=== PATIENT | female | born 1960 | race American Indian/Alaskan Native ===

== ENCOUNTER 2016-09-04 08:03 | Outpatient (CLI) | payer OTHER ==
[2016-09-04 08:50] LABS: Blood Urea Nitrogen 16 mg/dL (7-17)
[2016-09-04] MEDS ORDERED: NACL ONE (10:00)
--- NOTE | 2016-09-04 10:45 | Cat Scan Report ---
CT of the abdomen and pelvis with IV and oral contrast. History: Abdominal pain and distention. Findings: The liver, spleen, pancreas, and gallbladder are normal. The kidneys are normal in size and configuration with no evidence of mass or hydronephrosis. There are no pelvic masses or abnormal fluid collections. No mesenteric inflammation seen. There is no free air. The uterus and adnexa are unremarkable. There is no evidence of appendicitis. Impression: Normal study.
== END 2016-09-04 08:04 | disposition home or self-care (01) ==
LOC: CT 08:03
PROVIDERS: ATTEND Internal Medicine Gastroenterology
DX: R14.0 Abdominal distension (gaseous) (principal); R10.9 Unspecified abdominal pain
CPT/HCPCS: 36415; 74177; 82565; 84520; Q9967

== ENCOUNTER 2016-12-15 17:33 | Emergency (ER) | payer OTHER ==
[2016-12-15 17:42] VITALS: BP 111/74
[2016-12-15 18:18] LABS: Bacteria,Urine 1+ /HPF (Negative); Bilirubin,Urine NEG (Negative); Blood,Urine MOD (Negative); Ketones,Urine NEG (Negative); Leukocyte Esterase,Urine NEG (Negative); Mucus,Urine FEW /HPF; Nitrite,Urine NEG (Negative); Protein,Urine <15 mg/dL mg/dL (Negative); Urobilinogen,Urine < 2.0 mg/dL (<2.0)
--- NOTE | 2016-12-15 21:20 | Emergency Department Report ---
Entered by JAGDISH CASTELLANOS, acting as scribe for ARLEY RODRIGUEZ PA. ED General Adult HPI - General Chief complaint: Urogenital-Female Stated complaint: POSS URINE TRACK INFECTION Time Seen by Provider: 12/15/16 19:11 Source: patient Mode of arrival: Ambulatory Limitations: No Limitations - History of Present Illness Initial comments: 56 y/o female with a PMHx of vertigo and sinus infections presents to the ED c/ o abdominal pressure with urination that began 2 days ago. Denies dysuria, urinary urgency and frequency, vaginal bleeding, vaginal discharge, nausea, vomiting, diarrhea, fever, and chills. Notes a possible UTI. Patient also c/o facial sinus congestion pain, which she describes as pressure in quality. Rates pain a 7/10 in severity. Denies headache, dizziness, stiff neck, ear pain, and rhinorrhea. Notes Hx of similar sinus symptoms. Reports that she is currently out of her nasal spray. Allergic to penicillins. MD Complaint: Abd Pressure with urination/sinus facial pressure Onset/Timin -: days(s) Location: abdomen Radiation: non-radiation Severity scale (0 -10): 3 Quality: other (pressure) Consistency: intermittent Improves with: none Worsens with: other (urination) Associated Symptoms: denies other symptoms. denies: confusion, chest pain, cough, diaphoresis, fever/chills, headaches, loss of appetite, malaise, nausea/ vomiting, rash, seizure, shortness of breath, syncope, weakness Treatments Prior to Arrival: none - Related Data Home Medications Medication Instructions Recorded Confirmed Last Taken Montelukast [Singulair] 10 mg PO QDAY 10/11/14 06/01/15 05/31/15 Lisinopril/Hydrochlorothiazide 0.5 tab PO QDAY 02/25/15 06/01/15 05/31/15 [Zestoretic 10-12.5 mg] Diazepam Tab [Valium] 5 mg PO ONCE PRN 06/01/15 06/01/15 05/31/15 HYDROcodone/ACETAMINOPHEN 1 tab PO QID 06/01/15 06/01/15 05/31/15 [HYDROcodone-Acetaminophen 5-300 mg] Previous Rx's Medication Instructions Recorded Last Taken Type HYDROcodone/APAP 5-325 [[place] 1 each PO Q6HR PRN #8 tablet 12/24/16 Unknown Rx 5/325] Fluticasone [Flonase] 1 spray NS QDAY #1 bottle 12/15/16 Unknown Rx Pseudoephedrine HCl 120 mg PO BID #30 tablet.er 12/15/16 Unknown Rx [Pseudoephedrine ER] Sulfamethoxazole/Trimethoprim 1 each PO BID #14 tablet 12/15/16 Unknown Rx [Bactrim DS TAB] Allergies Allergy/AdvReac Type Severity Reaction Status Date / Time Penicillins AdvReac HAIR [place]ALLS Verified 02/25/15 07:44 OUT ED Review of Systems Comment: All other systems reviewed and negative Constitutional: denies: chills, diaphoresis, fever, weakness Eyes: denies: eye pain, eye discharge, vision change ENT: congestion (sinus facial pressure pain). denies: ear pain, throat pain, dental pain, hearing loss, epistaxis Respiratory: denies: cough, orthopnea, shortness of breath, SOB with exertion, SOB at rest, stridor, wheezing Cardiovascular: denies: chest pain, palpitations, dyspnea on exertion, orthopnea , edema, syncope, paroxysmal nocturnal dyspnea Endocrine: no symptoms reported Gastrointestinal: abdominal pain (abdominal pressure with urination). denies: nausea, vomiting, diarrhea, constipation, hematemesis, melena, hematochezia Genitourinary: denies: urgency, dysuria, frequency, hematuria, discharge Musculoskeletal: denies: back pain, joint swelling, arthralgia Skin: denies: rash, lesions Neurological: denies: headache, weakness, numbness, paresthesias Hematological/Lymphatic: denies: easy bleeding, easy bruising ED Past Medical Hx - Past Medical History Hx Hypertension: Yes Hx Arthritis: Yes Hx HIV: No Additional medical history: Sinus problemsVERTIGO - Surgical History Additional Surgical History: CERVICAL FUSION - Social History Smoking Status: Never Smoker Substance Use Type: None - Medications Home Medications: Home Medications Medication Instructions Recorded Confirmed Last Taken Type Montelukast [Singulair] 10 mg PO QDAY 10/11/14 06/01/15 05/31/15 History Lisinopril/Hydrochlorothiazide 0.5 tab PO QDAY 02/25/15 06/01/15 05/31/15 History [Zestoretic 10-12.5 mg] Diazepam Tab [Valium] 5 mg PO ONCE PRN 06/01/15 06/01/15 05/31/15 History HYDROcodone/ACETAMINOPHEN 1 tab PO QID 06/01/15 06/01/15 05/31/15 History [HYDROcodone-Acetaminophen 5-300 mg] HYDROcodone/APAP 5-325 [[place] 1 each PO Q6HR PRN #8 tablet 05/11/16 Unknown Rx 5/325] Fluticasone [Flonase] 1 spray NS QDAY #1 bottle 12/15/16 Unknown Rx Pseudoephedrine HCl 120 mg PO BID #30 tablet.er 12/15/16 Unknown Rx [Pseudoephedrine ER] Sulfamethoxazole/Trimethoprim 1 each PO BID #14 tablet 12/15/16 Unknown Rx [Bactrim DS TAB] ED Physical Exam - General Limitations: No Limitations General appearance: alert, in no apparent distress - Head Head exam: Present: atraumatic, normocephalic, other (facial sinus tenderness) - Eye Eye exam: Present: normal appearance, PERRL, EOMI Pupils: Present: normal accommodation - ENT ENT exam: Present: mucous membranes moist, normal external ear exam, other (no nasal drainage, erythema, or edema noted). Absent: TM's normal bilaterally ( fluid in back of TMs bilaterally) - Neck Neck exam: Present: normal inspection, full ROM. Absent: tenderness, meningismus, lymphadenopathy - Respiratory Respiratory exam: Present: normal lung sounds bilaterally. Absent: respiratory distress, wheezes, rales, rhonchi, stridor, accessory muscle use, decreased breath sounds - Cardiovascular Cardiovascular Exam: Present: regular rate, normal rhythm, normal heart sounds. Absent: systolic murmur, diastolic murmur, rubs, gallop - GI/Abdominal GI/Abdominal exam: Present: soft, normal bowel sounds. Absent: distended, tenderness, guarding, rebound, rigid - Extremities Exam Extremities exam: Present: normal inspection, full ROM - Back Exam Back exam: Present: normal inspection, full ROM. Absent: CVA tenderness (R), CVA tenderness (L) - Neurological Exam Neurological exam: Present: alert, oriented X3, normal gait - Psychiatric Psychiatric exam: Present: normal affect, normal mood - Skin Skin exam: Present: warm, dry, intact. Absent: rash ED Course Vital Signs 12/15/16 12/15/16 17:37 20:23 Temperature 98.9 F Pulse Rate 83 72 Respiratory 14 Rate Blood Pressure 111/74 O2 Sat by Pulse 100 Oximetry ED Medical Decision Making - Medical Decision Making 56 year-old female presents with urinary tract infection and nasal congestion Urinalysis ordered,Urinalysis positive for bacteria. Discussed the patient pseudoephedrine and antibiotics medication as prescribed. Discussed findings with patient. Discuss with patient's complete dose of antibiotics. Discussed the patient to follow instructions as given and follow-up with primary care physician. Discussed the patient to use prescribed nasal spray for congestion as needed. Discuss her symptoms return or worsen to return to the ED Vital signs are normal patient is in no acute distress ED Disposition Clinical Impression: Nasal sinus congestion UTI (urinary tract infection) Qualifiers: Urinary tract infection type: acute cystitis Hematuria presence: without hematuria Qualified Code(s): N30.00 - Acute cystitis without hematuria Disposition: TO HOME OR SELFCARE Is pt being admited?: No Does the pt Need Aspirin: No Condition: Stable Instructions: Pseudoephedrine (By mouth), Urinary Tract Infection in Women (ED) Prescriptions: Fluticasone [Flonase] 1 spray NS QDAY #1 bottle Pseudoephedrine HCl [Pseudoephedrine ER] 120 mg PO BID #30 tablet.er Sulfamethoxazole/Trimethoprim [Bactrim DS TAB] 1 each PO BID #14 tablet Referrals: PRIMARY CARE, [Primary Care Provider] - 3-5 Days [facility] [Outside] - 3-5 Days [facility] [Outside] - 3-5 Days [facility] [Outside] - 3-5 Days Forms: Accompanied Note, Work/School Release Form(ED) Time of Disposition: 19:59 This documentation as recorded by the EMANUEL berry JASMINE,accurately reflects the service I personally performed and the decisions made by ,ARLEY RODRIGUEZ PA.
== END 2016-12-15 20:24 | disposition home or self-care (01) ==
LOC: ED 17:33
DX: N30.00 Acute cystitis without hematuria (principal); R09.81 Nasal congestion; I10 Essential (primary) hypertension; M19.90 Unspecified osteoarthritis, unspecified site; Z88.0 Allergy status to penicillin
CPT/HCPCS: 81001; 99283

== ENCOUNTER 2017-01-05 21:06 | Emergency (ER) | payer OTHER ==
[2017-01-05 21:19] VITALS: BP 116/74
== END 2017-01-05 21:30 | disposition left against medical advice (07) ==
LOC: ED 21:06
DX: J02.9 Acute pharyngitis, unspecified (principal); Z53.21 Procedure and treatment not carried out due to patient leaving prior to being seen by health care provider

== ENCOUNTER 2018-01-03 00:21 | Emergency (ER) | payer MEDICARE ==
[2018-01-03 03:34] LABS: Bacteria,Urine 1+ /HPF (Negative); Bilirubin,Urine NEG (Negative); Blood,Urine NEG (Negative); Color,Urine Straw (Yellow); Protein,Urine <15 mg/dL mg/dL (Negative); Urobilinogen,Urine < 2.0 mg/dL (<2.0)
--- NOTE | 2018-01-03 06:52 | Emergency Department Report ---
- General Chief Complaint: Sore Throat Stated Complaint: SORE THROAT/EYE PAIN/PAINFUL URINATION Time Seen by Provider: 01/03/18 06:20 Source: patient Mode of arrival: Ambulatory Limitations: No Limitations - History of Present Illness Initial Comments: 57-year-old female with a past medical history of arthritis, hypertension, and sinus problems presents to the hospital complaints of sore throat, dry cough, right ear irritation, nasal congestion, headache behind eyes since yesterday. No fever reported. Patient also complains of mild dysuria. Patient does smoke cigarettes on occasion. Pain overall is 7/10 in intensity. - Related Data Home Medications Medication Instructions Recorded Confirmed Last Taken Montelukast [Singulair] 10 mg PO QDAY 10/11/14 06/01/15 05/31/15 Lisinopril/Hydrochlorothiazide 0.5 tab PO QDAY 02/25/15 06/01/15 05/31/15 [Zestoretic 10-12.5 mg] HYDROcodone/ACETAMINOPHEN 1 tab PO QID 06/01/15 06/01/15 05/31/15 [HYDROcodone-Acetaminophen 5-300 mg] diazePAM TAB [Valium] 5 mg PO ONCE PRN 06/01/15 06/01/15 05/31/15 Previous Rx's Medication Instructions Recorded Last Taken Type HYDROcodone/APAP 5-325 [[place] 1 each PO Q6HR PRN #8 tablet 05/11/16 Unknown Rx 5/325] Fluticasone [Flonase] 1 spray NS QDAY #1 bottle 12/15/16 Unknown Rx Pseudoephedrine HCl 120 mg PO BID #30 tablet.er 12/15/16 Unknown Rx [Pseudoephedrine ER] Sulfamethoxazole/Trimethoprim 1 each PO BID #14 tablet 12/15/16 Unknown Rx [Bactrim DS TAB] Azithromycin [Zithromax Z-YINKA] 1 dose PO DAILY 5 Days tab 01/03/18 Unknown Rx Benzonatate [Tessalon Perles] 100 mg PO Q8HR PRN #20 capsule 01/03/18 Unknown Rx Ibuprofen [Motrin] 800 mg PO Q8HR PRN #20 tablet 01/03/18 Unknown Rx Sodium Chloride [Saline Nasal 2 sprays NS PRN PRN #1 bottle 01/03/18 Unknown Rx [place]] Allergies Allergy/AdvReac Type Severity Reaction Status Date / Time Penicillins AdvReac [place] Verified 02/25/15 07:44 OUT ED Review of Systems ROS: Stated complaint: SORE THROAT/EYE PAIN/PAINFUL URINATION Other details as noted in HPI Comment: All other systems reviewed and negative ED Past Medical Hx - Past Medical History Previous Medical History?: Yes Hx Hypertension: Yes Hx Arthritis: Yes Hx HIV: No Additional medical history: Sinus problemsVERTIGO - Surgical History Past Surgical History?: Yes Additional Surgical History: CERVICAL FUSION - Social History Smoking Status: Current Some Day Smoker Substance Use Type: None - Medications Home Medications: Home Medications Medication Instructions Recorded Confirmed Last Taken Type Montelukast [Singulair] 10 mg PO QDAY 10/11/14 06/01/15 05/31/15 History Lisinopril/Hydrochlorothiazide 0.5 tab PO QDAY 02/25/15 06/01/15 05/31/15 History [Zestoretic 10-12.5 mg] HYDROcodone/ACETAMINOPHEN 1 tab PO QID 06/01/15 06/01/15 05/31/15 History [HYDROcodone-Acetaminophen 5-300 mg] diazePAM TAB [Valium] 5 mg PO ONCE PRN 06/01/15 06/01/15 05/31/15 History HYDROcodone/APAP 5-325 [[place] 1 each PO Q6HR PRN #8 tablet 05/11/16 Unknown Rx 5/325] Fluticasone [Flonase] 1 spray NS QDAY #1 bottle 12/15/16 Unknown Rx Pseudoephedrine HCl 120 mg PO BID #30 tablet.er 12/15/16 Unknown Rx [Pseudoephedrine ER] Sulfamethoxazole/Trimethoprim 1 each PO BID #14 tablet 12/15/16 Unknown Rx [Bactrim DS TAB] Azithromycin [Zithromax Z-YINKA] 1 dose PO DAILY 5 Days tab 01/03/18 Unknown Rx Benzonatate [Tessalon Perles] 100 mg PO Q8HR PRN #20 capsule 01/03/18 Unknown Rx Ibuprofen [Motrin] 800 mg PO Q8HR PRN #20 tablet 01/03/18 Unknown Rx Sodium Chloride [Saline Nasal 2 sprays NS PRN PRN #1 bottle 01/03/18 Unknown Rx [place]] ED Physical Exam - General Limitations: No Limitations - Other Other exam information: General: No limitations, patient is alert in no acute distress Head exam: Atraumatic, normocephalic Eyes exam: Normal appearance, ENT: Moist mucous membrane, right ear poor light reflex. No ear drainage. No exudates or erythema to posterior pharynx no significant sinus tenderness. Nasal congestion Neck exam: Normal inspection, full range of motion, no meningismus nontender Respiratory exam: Clear to auscultation bilateral, no wheezes, rales, crackles Cardiovascular: Normal rate and rhythm, normal heart sounds Abdomen: Soft, nondistended, and nontender, with normal bowel sounds, no rebound, or guarding Extremity: Full range of motion normal inspection no deformity Back: Normal Inspection, full range of motion, no tenderness Neurologic: Alert, oriented x3, cranial nerves intact, no motor or sensory deficit Psychiatric: normal affect, normal mood Skin: Warm, dry, intact ED Course Vital Signs 01/03/18 01:00 Temperature 98.4 F Pulse Rate 85 Respiratory 17 Rate Blood Pressure 123/80 O2 Sat by Pulse 99 Oximetry ED Medical Decision Making - Medical Decision Making Patient be she is symptomatically for otitis and sinus headache and likely has a viral syndrome. UA negative for infection Vital signs normal - Differential Diagnosis sinusitis, viral syndrome, pharyngitis, otitis, bronchitis Critical Care Time: No Critical care attestation.: If time is entered above; I have spent that time in minutes in the direct care of this critically ill patient, excluding procedure time. ED Disposition Clinical Impression: Viral syndrome, Otitis media, Sinus headache Disposition: TO HOME OR SELFCARE Is pt being admited?: No Does the pt Need Aspirin: No Condition: Stable Instructions: Viral Syndrome (ED), Otitis Media (ED), Sinusitis (ED) Additional Instructions: Take the medication as prescribed. Return if symptoms worsen as indicated by your discharge instructions. Prescriptions: Azithromycin [Zithromax Z-YINKA] 1 dose PO DAILY 5 Days tab Benzonatate [Tessalon Perles] 100 mg PO Q8HR PRN #20 capsule PRN Reason: Cough Ibuprofen [Motrin] 800 mg PO Q8HR PRN #20 tablet PRN Reason: Pain, Moderate (4-6) Sodium Chloride [Saline Nasal [place]] 2 sprays NS PRN PRN #1 bottle PRN Reason: Nasal Congestion Referrals: GABRIELA LANDRY MD [Primary Care Provider] - 3-5 Days Time of Disposition: :26
[2018-01-03 07:46] VITALS: BP 125/75
== END 2018-01-03 07:45 | disposition home or self-care (01) ==
LOC: ED 00:21
DX: B34.8 Other viral infections of unspecified site (principal); H66.91 Otitis media, unspecified, right ear; I10 Essential (primary) hypertension; M19.90 Unspecified osteoarthritis, unspecified site; F17.200 Nicotine dependence, unspecified, uncomplicated; Z88.0 Allergy status to penicillin
CPT/HCPCS: 81001; 87116; 87430; 99283

== ENCOUNTER 2018-07-11 17:02 | Emergency (ER) | payer MEDICARE ==
--- NOTE | 2018-07-11 17:41 | Emergency Department Report ---
Chief Complaint: Upper Respiratory Infection Stated Complaint: RT EAR CLOGGED/SINUS INFECTION Time Seen by Provider: 07/11/18 17:39 - HPI History of Present Illness: SINUS CONGESTION VERTIGO NO CP NO SOB NO COUGH PMH HTN DR ANN IS PCP PSH CERVIAL FUSION RX BP MED MSE COMPLETED MSE screening note: Focused history and physical exam performed. Due to findings the following was ordered: ED Disposition for MSE Condition: Stable
--- NOTE | 2018-07-11 21:04 | Emergency Department Report ---
ED ENT HPI - General Chief complaint: Upper Respiratory Infection Stated complaint: RT EAR CLOGGED/SINUS INFECTION Time Seen by Provider: 07/11/18 17:39 Source: patient Mode of arrival: Ambulatory Limitations: No Limitations - History of Present Illness Initial comments: 58-year-old -Citizen Of [place] female comes in for nasal congestion and feels like her right ear is clogged. Patient reports her symptoms started yesterday. Patient reports she has not taken any thing for her pain. She does report using her Flonase. Patient denies any fever chills no nausea no vomiting. She does report a history of vertigo. MD complaint: other (nasal congestion, ears feeling clogged) -: days(s) (1) Location: R ear Severity scale (0 -10): 0 Consistency: intermittent Improves with: none Worsens with: none Associated Symptoms: rhinorrhea, other (nasal congestion). denies: fever, cough, pain with swallowing, sore throat, discharge from ear - Related Data Home Medications Medication Instructions Recorded Confirmed Last Taken Montelukast [Singulair] 10 mg PO QDAY 10/11/14 06/01/15 05/31/15 Lisinopril/Hydrochlorothiazide 0.5 tab PO QDAY 02/25/15 06/01/15 05/31/15 [Zestoretic 10-12.5 mg] HYDROcodone/ACETAMINOPHEN 1 tab PO QID 06/01/15 06/01/15 05/31/15 [HYDROcodone-Acetaminophen 5-300 mg] diazePAM TAB [Valium] 5 mg PO ONCE PRN 06/01/15 06/01/15 05/31/15 Previous Rx's Medication Instructions Recorded Last Taken Type HYDROcodone/APAP 5-325 [[place] 1 each PO Q6HR PRN #8 tablet 05/11/16 Unknown Rx 5/325] Fluticasone [Flonase] 1 spray NS QDAY #1 bottle 12/15/16 Unknown Rx Sulfamethoxazole/Trimethoprim 1 each PO BID #14 tablet 12/15/16 Unknown Rx [Bactrim DS TAB] Azithromycin [Zithromax Z-YINKA] 1 dose PO DAILY 5 Days tab 01/03/18 Unknown Rx Benzonatate [Tessalon Perles] 100 mg PO Q8HR PRN #20 capsule 01/03/18 Unknown Rx Ibuprofen [Motrin] 800 mg PO Q8HR PRN #20 tablet 01/03/18 Unknown Rx Sodium Chloride [Saline Nasal 2 sprays NS PRN PRN #1 bottle 01/03/18 Unknown Rx [place]] Ibuprofen [Motrin 600 MG tab] 600 mg PO Q8H PRN #30 tablet 07/11/18 Unknown Rx Pseudoephedrine HCl 120 mg PO BID #30 tablet.er 07/11/18 Unknown Rx [Pseudoephedrine ER] Allergies Allergy/AdvReac Type Severity Reaction Status Date / Time Penicillins AdvReac [place] Verified 02/25/15 07:44 OUT ED Dental HPI - General Chief complaint: Upper Respiratory Infection Stated complaint: RT EAR CLOGGED/SINUS INFECTION Time Seen by Provider: 07/11/18 17:39 Source: patient Mode of arrival: Ambulatory Limitations: No Limitations - Related Data Home Medications Medication Instructions Recorded Confirmed Last Taken Montelukast [Singulair] 10 mg PO QDAY 10/11/14 06/01/15 05/31/15 Lisinopril/Hydrochlorothiazide 0.5 tab PO QDAY 02/25/15 06/01/15 05/31/15 [Zestoretic 10-12.5 mg] HYDROcodone/ACETAMINOPHEN 1 tab PO QID 06/01/15 06/01/15 05/31/15 [HYDROcodone-Acetaminophen 5-300 mg] diazePAM TAB [Valium] 5 mg PO ONCE PRN 06/01/15 06/01/15 05/31/15 Previous Rx's Medication Instructions Recorded Last Taken Type HYDROcodone/APAP 5-325 [[place] 1 each PO Q6HR PRN #8 tablet 05/11/16 Unknown Rx 5/325] Fluticasone [Flonase] 1 spray NS QDAY #1 bottle 12/15/16 Unknown Rx Sulfamethoxazole/Trimethoprim 1 each PO BID #14 tablet 12/15/16 Unknown Rx [Bactrim DS TAB] Azithromycin [Zithromax Z-YINKA] 1 dose PO DAILY 5 Days tab 01/03/18 Unknown Rx Benzonatate [Tessalon Perles] 100 mg PO Q8HR PRN #20 capsule 01/03/18 Unknown Rx Ibuprofen [Motrin] 800 mg PO Q8HR PRN #20 tablet 01/03/18 Unknown Rx Sodium Chloride [Saline Nasal 2 sprays NS PRN PRN #1 bottle 01/03/18 Unknown Rx [place]] Ibuprofen [Motrin 600 MG tab] 600 mg PO Q8H PRN #30 tablet 07/11/18 Unknown Rx Pseudoephedrine HCl 120 mg PO BID #30 tablet.er 07/11/18 Unknown Rx [Pseudoephedrine ER] Allergies Allergy/AdvReac Type Severity Reaction Status Date / Time Penicillins AdvReac [place] Verified 02/25/15 07:44 OUT ED Review of Systems ROS: Stated complaint: RT EAR CLOGGED/SINUS INFECTION Other details as noted in HPI Comment: All other systems reviewed and negative ENT: congestion, other (ears clogged) ED Past Medical Hx - Past Medical History Hx Hypertension: Yes Hx Arthritis: Yes Hx HIV: No Additional medical history: Sinus problemsVERTIGO - Surgical History Past Surgical History?: Yes Additional Surgical History: CERVICAL FUSION - Social History Smoking Status: Never Smoker Substance Use Type: None - Medications Home Medications: Home Medications Medication Instructions Recorded Confirmed Last Taken Type Montelukast [Singulair] 10 mg PO QDAY 10/11/14 06/01/15 05/31/15 History Lisinopril/Hydrochlorothiazide 0.5 tab PO QDAY 02/25/15 06/01/15 05/31/15 Histor y [Zestoretic 10-12.5 mg] HYDROcodone/ACETAMINOPHEN 1 tab PO QID 06/01/15 06/01/15 05/31/15 History [HYDROcodone-Acetaminophen 5-300 mg] diazePAM TAB [Valium] 5 mg PO ONCE PRN 06/01/15 06/01/15 05/31/15 History HYDROcodone/APAP 5-325 [[place] 1 each PO Q6HR PRN #8 tablet 05/11/16 Unknown Rx 5/325] Fluticasone [Flonase] 1 spray NS QDAY #1 bottle 12/15/16 Unknown Rx Sulfamethoxazole/Trimethoprim 1 each PO BID #14 tablet 12/15/16 Unknown Rx [Bactrim DS TAB] Azithromycin [Zithromax Z-YINKA] 1 dose PO DAILY 5 Days tab 01/03/18 Unknown Rx Benzonatate [Tessalon Perles] 100 mg PO Q8HR PRN #20 capsule 01/03/18 Unknown Rx Ibuprofen [Motrin] 800 mg PO Q8HR PRN #20 tablet 01/03/18 Unknown Rx Sodium Chloride [Saline Nasal 2 sprays NS PRN PRN #1 bottle 01/03/18 Unknown Rx [place]] Ibuprofen [Motrin 600 MG tab] 600 mg PO Q8H PRN #30 tablet 07/11/18 Unknown Rx Pseudoephedrine HCl 120 mg PO BID #30 tablet.er 07/11/18 Unknown Rx [Pseudoephedrine ER] ED Physical Exam - General Limitations: No Limitations General appearance: alert, in no apparent distress - Head Head exam: Present: atraumatic, normocephalic - Eye Eye exam: Present: normal appearance, EOMI - ENT ENT exam: Present: mucous membranes moist, TM's normal bilaterally - Neck Neck exam: Present: normal inspection, full ROM. Absent: lymphadenopathy - Respiratory Respiratory exam: Present: normal lung sounds bilaterally. Absent: respiratory distress - Cardiovascular Cardiovascular Exam: Present: regular rate, normal rhythm. Absent: systolic murmur, diastolic murmur, rubs, gallop - Neurological Exam Neurological exam: Present: alert, oriented X3 - Psychiatric Psychiatric exam: Present: normal affect, normal mood - Skin Skin exam: Present: warm, dry, intact, normal color. Absent: rash ED Course Vital Signs 07/11/18 17:39 Temperature 97.8 F Pulse Rate 83 Respiratory 16 Rate Blood Pressure 120/66 Blood Pressure 120/66 [Left] O2 Sat by Pulse 100 Oximetry ED Medical Decision Making - Medical Decision Making Patient comes in for nasal congestion and ear clogged. Patient examination is within normal limits. Discussed the patient to continue with the Flonase and will place her on p seudoephedrine extended release 120 mg twice a day. Critical care attestation.: If time is entered above; I have spent that time in minutes in the direct care of this critically ill patient, excluding procedure time. ED Disposition Clinical Impression: Mild nasal congestion Disposition: DC-01 TO HOME OR SELFCARE Is pt being admited?: No Does the pt Need Aspirin: No Condition: Stable Instructions: Pseudoephedrine (By mouth) Additional Instructions: Please continue with using the Flonase nasal spray take antihistamine nasal decongestion. Follow-up which her primary care provider this symptoms persist or gets worse. Your medical provider is a . you need to see for nonemergent issues. Prescriptions: Ibuprofen [Motrin 600 MG tab] 600 mg PO Q8H PRN #30 tablet PRN Reason: Pain Pseudoephedrine HCl [Pseudoephedrine ER] 120 mg PO BID #30 tablet.er Referrals: Wilfrido LANDRY MD [Primary Care Provider] - 3-5 Days
== END 2018-07-11 21:28 | disposition home or self-care (01) ==
LOC: ED 17:02
CPT/HCPCS: 99282

== ENCOUNTER 2018-09-11 20:45 | Emergency (ER) | payer MEDICARE ==
[2018-09-11 21:19] VITALS: BP 117/80
--- NOTE | 2018-09-12 02:16 | Emergency Department Report ---
ED ENT HPI - General Chief complaint: Earache Stated complaint: BOTH EARS/SINUS PAIN Time Seen by Provider: 09/12/18 00:11 Source: patient Mode of arrival: Ambulatory Limitations: No Limitations - History of Present Illness Initial comments: 58-year-old -[place] female with past medical history of hypertension and vertigo presents emerge department complaining of bilateral earaches and sinus pressure which been present for 1-2 days. No fever, chills, sweats, chest pain, palpitations, nausea or vomiting. Has also had a tender knot to her neck and occasional pain with swelling. - Related Data Home Medications Medication Instructions Recorded Confirmed Last Taken Montelukast [Singulair] 10 mg PO QDAY 10/11/14 06/01/15 05/31/15 Lisinopril/Hydrochlorothiazide 0.5 tab PO QDAY 02/25/15 06/01/15 05/31/15 [Zestoretic 10-12.5 mg] HYDROcodone/ACETAMINOPHEN 1 tab PO QID 06/01/15 06/01/15 05/31/15 [HYDROcodone-Acetaminophen 5-300 mg] diazePAM TAB [Valium] 5 mg PO ONCE PRN 06/01/15 06/01/15 05/31/15 Previous Rx's Medication Instructions Recorded Last Taken Type HYDROcodone/APAP 5-325 [[place] 1 each PO Q6HR PRN #8 tablet 05/11/16 Unknown Rx 5/325] Fluticasone [Flonase] 1 spray NS QDAY #1 bottle 12/15/16 Unknown Rx Sulfamethoxazole/Trimethoprim 1 each PO BID #14 tablet 12/15/16 Unknown Rx [Bactrim DS TAB] Azithromycin [Zithromax Z-YINKA] 1 dose PO DAILY 5 Days tab 01/03/18 Unknown Rx Benzonatate [Tessalon Perles] 100 mg PO Q8HR PRN #20 capsule 01/03/18 Unknown Rx Ibuprofen [Motrin] 800 mg PO Q8HR PRN #20 tablet 01/03/18 Unknown Rx Sodium Chloride [Saline Nasal 2 sprays NS PRN PRN #1 bottle 01/03/18 Unknown Rx [place]] Ibuprofen [Motrin 600 MG tab] 600 mg PO Q8H PRN #30 tablet 07/11/18 Unknown Rx Pseudoephedrine HCl 120 mg PO BID #30 tablet.er 07/11/18 Unknown Rx [Pseudoephedrine ER] Cetirizine HCl/Pseudoephedrine 1 each PO DAILY #10 tab.er.12h 09/12/18 Unknown Rx [Zyrtec-D Tablet] predniSONE [Deltasone] 50 mg PO QDAY #5 tab 09/12/18 Unknown Rx Allergies Allergy/AdvReac Type Severity Reaction Status Date / Time Penicillins AdvReac HAIR FALLS Verified 02/25/15 07:44 OUT ED Dental HPI - General Chief complaint: Earache Stated complaint: BOTH EARS/SINUS PAIN Time Seen by Provider: 09/12/18 00:11 Source: patient Mode of arrival: Ambulatory Limitations: No Limitations - Related Data Home Medications Medication Instructions Recorded Confirmed Last Taken Montelukast [Singulair] 10 mg PO QDAY 10/11/14 06/01/15 05/31/15 Lisinopril/Hydrochlorothiazide 0.5 tab PO QDAY 02/25/15 06/01/15 05/31/15 [Zestoretic 10-12.5 mg] HYDROcodone/ACETAMINOPHEN 1 tab PO QID 06/01/15 06/01/15 05/31/15 [HYDROcodone-Acetaminophen 5-300 mg] diazePAM TAB [Valium] 5 mg PO ONCE PRN 06/01/15 06/01/15 05/31/15 Previous Rx's Medication Instructions Recorded Last Taken Type HYDROcodone/APAP 5-325 [[place] 1 each PO Q6HR PRN #8 tablet 05/11/16 Unknown Rx 5/325] Fluticasone [Flonase] 1 spray NS QDAY #1 bottle 12/15/16 Unknown Rx Sulfamethoxazole/Trimethoprim 1 each PO BID #14 tablet 12/15/16 Unknown Rx [Bactrim DS TAB] Azithromycin [Zithromax Z-YINKA] 1 dose PO DAILY 5 Days tab 01/03/18 Unknown Rx Benzonatate [Tessalon Perles] 100 mg PO Q8HR PRN #20 capsule 01/03/18 Unknown Rx Ibuprofen [Motrin] 800 mg PO Q8HR PRN #20 tablet 01/03/18 Unknown Rx Sodium Chloride [Saline Nasal 2 sprays NS PRN PRN #1 bottle 01/03/18 Unknown Rx [place]] Ibuprofen [Motrin 600 MG tab] 600 mg PO Q8H PRN #30 tablet 07/11/18 Unknown Rx Pseudoephedrine HCl 120 mg PO BID #30 tablet.er 07/11/18 Unknown Rx [Pseudoephedrine ER] Cetirizine HCl/Pseudoephedrine 1 each PO DAILY #10 tab.er.12h 09/12/18 Unknown Rx [Zyrtec-D Tablet] predniSONE [Deltasone] 50 mg PO QDAY #5 tab 09/12/18 Unknown Rx Allergies Allergy/AdvReac Type Severity Reaction Status Date / Time Penicillins AdvReac HAIR [place]ALLS Verified 02/25/15 07:44 OUT ED Review of Systems ROS: Stated complaint: BOTH EARS/SINUS PAIN Other details as noted in HPI Constitutional: denies: chills, fever Eyes: denies: eye pain, eye discharge, vision change ENT: ear pain, congestion. denies: throat pain Respiratory: denies: cough, shortness of breath, wheezing Cardiovascular: denies: chest pain, palpitations Endocrine: no symptoms reported Gastrointestinal: denies: abdominal pain, nausea, diarrhea Genitourinary: denies: urgency, dysuria, discharge Musculoskeletal: denies: back pain, joint swelling, arthralgia Skin: denies: rash, lesions Neurological: denies: headache, weakness, paresthesias Psychiatric: denies: anxiety, depression Hematological/Lymphatic: denies: easy bleeding, easy bruising ED Past Medical Hx - Past Medical History Previous Medical History?: Yes Hx Hypertension: Yes Hx Arthritis: Yes Hx HIV: No Additional medical history: Sinus problemsVERTIGO - Surgical History Past Surgical History?: Yes Additional Surgical History: CERVICAL FUSION - Social History Smoking Status: Current Some Day Smoker Substance Use Type: None - Medications Home Medications: Home Medications Medication Instructions Recorded Confirmed Last Taken Type Montelukast [Singulair] 10 mg PO QDAY 10/11/14 06/01/15 05/31/15 History Lisinopril/Hydrochlorothiazide 0.5 tab PO QDAY 02/25/15 06/01/15 05/31/15 History [Zestoretic 10-12.5 mg] HYDROcodone/ACETAMINOPHEN 1 tab PO QID 06/01/15 06/01/15 05/31/15 History [HYDROcodone-Acetaminophen 5-300 mg] diazePAM TAB [Valium] 5 mg PO ONCE PRN 01/14/16 01/14/16 01/13/16 History HYDROcodone/APAP 5-325 [[place] 1 each PO Q6HR PRN #8 tablet 05/11/16 Unknown Rx 5/325] Fluticasone [Flonase] 1 spray NS QDAY #1 bottle 12/15/16 Unknown Rx Sulfamethoxazole/Trimethoprim 1 each PO BID #14 tablet 12/15/16 Unknown Rx [Bactrim DS TAB] Azithromycin [Zithromax Z-YINKA] 1 dose PO DAILY 5 Days tab 01/03/18 Unknown Rx Benzonatate [Tessalon Perles] 100 mg PO Q8HR PRN #20 capsule 01/03/18 Unknown Rx Ibuprofen [Motrin] 800 mg PO Q8HR PRN #20 tablet 01/03/18 Unknown Rx Sodium Chloride [Saline Nasal 2 sprays NS PRN PRN #1 bottle 01/03/18 Unknown Rx [place]] Ibuprofen [Motrin 600 MG tab] 600 mg PO Q8H PRN #30 tablet 07/11/18 Unknown Rx Pseudoephedrine HCl 120 mg PO BID #30 tablet.er 07/11/18 Unknown Rx [Pseudoephedrine ER] Cetirizine HCl/Pseudoephedrine 1 each PO DAILY #10 tab.er.12h 09/12/18 Unknown Rx [Zyrtec-D Tablet] predniSONE [Deltasone] 50 mg PO QDAY #5 tab 09/12/18 Unknown Rx ED Physical Exam - General Limitations: No Limitations General appearance: alert, in no apparent distress - Head Head exam: Present: atraumatic, normocephalic - Eye Eye exam: Present: normal appearance, PERRL Pupils: Present: normal accommodation - ENT ENT exam: Present: normal exam, normal orophraynx, mucous membranes moist, other (bulging tympanic membranes bilaterally sinus pressure with swelling bilaterally yellow and clear nasal drainage). Absent: TM's normal bilaterally - Neck Neck exam: Present: normal inspection, tenderness, full ROM, lymphadenopathy (left tonsillar node tenderness with palpation.) - Respiratory Respiratory exam: Present: normal lung sounds bilaterally. Absent: respiratory distress, wheezes, rales, rhonchi, chest wall tenderness, accessory muscle use - Cardiovascular Cardiovascular Exam: Present: regular rate, normal rhythm. Absent: systolic murmur, diastolic murmur, rubs, gallop - GI/Abdominal GI/Abdominal exam: Present: soft, normal bowel sounds - Extremities Exam Extremities exam: Present: normal inspection - Back Exam Back exam: Present: normal inspection - Neurological Exam Neurological exam: Present: alert, oriented X3 - Psychiatric Psychiatric exam: Present: normal affect, normal mood - Skin Skin exam: Present: warm, dry, intact, normal color. Absent: rash ED Course Vital Signs 09/11/18 09/12/18 21:16 02:49 Temperature 98.1 F 98.1 F Pulse Rate 79 79 Respiratory 18 18 Rate Blood Pressure 117/80 O2 Sat by Pulse 100 100 Oximetry Critical care attestation.: If time is entered above; I have spent that time in minutes in the direct care of this critically ill patient, excluding procedure time. ED Disposition Clinical Impression: Otalgia, Lymphadenopathy Disposition: - TO HOME OR SELFCARE Is pt being admited?: No Does the pt Need Aspirin: No Condition: Stable Instructions: Lymphadenopathy (ED), Earache (ED), Cold Symptoms (ED) Prescriptions: predniSONE [Deltasone] 50 mg PO QDAY #5 tab Cetirizine HCl/Pseudoephedrine [Zyrtec-D Tablet] 1 each PO DAILY #10 tab.er.12h Referrals: YU STANTON MD [Primary Care Provider] - 3-5 Days
== END 2018-09-12 02:49 | disposition home or self-care (01) ==
LOC: ED 20:45
DX: H92.03 Otalgia, bilateral (principal); R59.1 Generalized enlarged lymph nodes; R42 Dizziness and giddiness; I10 Essential (primary) hypertension; M19.90 Unspecified osteoarthritis, unspecified site; F17.200 Nicotine dependence, unspecified, uncomplicated; Z88.0 Allergy status to penicillin

== ENCOUNTER 2019-05-08 19:37 | Emergency (ER) | payer MEDICARE ==
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
[2019-05-08] MEDS ORDERED: traMADol 50 MG TAB PO ONE (21:23)
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
[2019-05-08 22:43] VITALS: BP 116/68
== END 2019-05-08 22:25 | disposition home or self-care (01) ==
LOC: ED 19:37
DX: S39.012A Strain of muscle, fascia and tendon of lower back, initial encounter (principal); I10 Essential (primary) hypertension; M19.90 Unspecified osteoarthritis, unspecified site; Z98.890 Other specified postprocedural states; F17.200 Nicotine dependence, unspecified, uncomplicated; Z88.0 Allergy status to penicillin; Z79.1 Long term (current) use of non-steroidal anti-inflammatories (NSAID); Z79.899 Other long term (current) drug therapy; V49.49XA Driver injured in collision with other motor vehicles in traffic accident, initial encounter; Y93.89 Activity, other specified; Y92.488 Other paved roadways as the place of occurrence of the external cause; Y99.8 Other external cause status
CPT/HCPCS: 99282